=== PATIENT | female | born 1980 | race Caucasian/White ===

== ENCOUNTER 2017-09-08 09:23 | Observation (INO) | payer OTHER ==
[~2017-09-08] VITALS: Ht 170.2 cm; Wt 72.2 kg
[~2017-09-08 09:23] MED LIST: CEPH500C57 OR; CIPRO500 MG OR; CLEOCIN150 MG OR; EFFEXOR75 MG PO; EQ IBUPROFEN200 MG OR; ETHINYL ESTRADIOL OR; LEVONORGESTREL OR; NAPROSYN500 MG OR; NAPROSYN500 MG PO; PYRIDIUM200 MG OR; REGLAN10 MG OR; TRAMADOL HCL50 MG OR; TRIPLE ANTI6 EX
[2017-09-08 10:52] LABS: HEMATOCRIT 40.7 % (37.0-47.0); HEMOGLOBIN 13.6 g/dl (12.0-16.0); IMMATURE GRANULOCYTES 0.2 % (0.0-1.0); MEAN CELL VOLUME 92.1 fL CALC (80.0-100.0); MEAN CORPUSCULAR HGB 30.8 pG CALC (26.0-32.0); MEAN CORPUSCULAR HGB CONC 33.4 g/L CALC (32.0-36.0); NEUT# 2.59 thou/uL (2.00-7.15); RED BLOOD COUNT 4.42 mill/uL (4.20-5.60); RED CELL DISTRI WIDTH 12.2 % (11.5-15.5)
[2017-09-08 11:05] LABS: ALBUMIN 4.6 g/dL (3.2-5.0); ALKALINE PHOSPHATASE 71 u/l (38-126); ANION GAP 14 (6-22 (CALC)); BILIRUBIN, TOTAL 0.5 mg/dL (0.0-1.4); BUN 16 mg/dL (7-17); BUN/CREATININE RATIO 22 (12-20 (CALC)); CALCIUM 9.5 mg/dL (8.4-10.2); CARBON DIOXIDE 29 mmol/l (22-30); CHLORIDE 102 mmol/l (95-108); CREATININE 0.7 mg/dL (0.5-1.0); GFR > 60 ML/MIN (>=60 (CALC)); GFR FOR AFR.AMER. > 60 ML/MIN (>=60 (CALC)); GLUCOSE 85 mg/dL (65-105); POTASSIUM 4.5 mmol/l (3.5-5.1); SGOT/AST 22 u/l (14-36); SGPT/ALT 29 u/l (9-52); SODIUM 140 mmol/l (137-146); TOTAL PROTEIN 7.3 g/dL (6.3-8.2)
[2017-09-08 11:08] LABS: MAGNESIUM 2.2 mg/dL (1.6-2.3)
[2017-09-08 11:17] LABS: MYOGLOBIN 39 ng/mL (0 - 62)
[2017-09-08 12:45] VITALS: BP 119/86
[2017-09-08 15:40] VITALS: BP 94/61
[2017-09-08 18:58] VITALS: BP 113/75
[2017-09-08 23:58] VITALS: BP 111/74
[2017-09-09 04:45] VITALS: BP 108/77
[2017-09-09 07:12] LABS: CHOLESTEROL HDL RATIO 1.9 (<4.4 (CALC))
[2017-09-09 07:38] VITALS: BP 112/77
[2017-09-09] MEDS ORDERED: EFFEXOR XR150 MG PO (10:06)
[2017-09-09 11:57] VITALS: BP 132/77
[2017-09-09 12:57] LABS: URINE BILIRUBIN - DIPSTICK NEGATIVE (NEGATIVE); URINE BLOOD DIPSTICK NEGATIVE (NEGATIVE); URINE COLOR YELLOW; URINE GLUCOSE - DIPSTICK NEGATIVE (NEGATIVE); URINE KETONE NEGATIVE (NEGATIVE); URINE LEUK ESTERASE NEGATIVE (NEGATIVE); URINE NITRITE - DIPSTICK NEGATIVE (Negative); URINE PH 6.5 (4.5-8.0); URINE PROTEIN - DIPSTICK NEGATIVE (NEG-TRACE); URINE SPECIFIC GRAVITY <=1.005; URINE UROBILINOGEN - DIPSTICK 0.2 E.U./dL (0.2)
[2017-09-09 12:59] LABS: URINE CLARITY CLEAR
[2017-09-09] MEDS ORDERED: PEPCID20 MG PO (14:15)
[2017-09-09] MEDS ORDERED: LORTAB 5/3255 MG PO (14:15)
== END 2017-09-09 17:23 | disposition home or self-care (01) | DRG 312 ==
LOC: ED 09:23 → ED-I 11:35 → ED 11:48 → MS2 11:49
PROVIDERS: Emergency Medicine; Nurse Practitioner Family; ADMIT Internal Medicine; ATTEND Internal Medicine
DX: R55 Syncope and collapse (principal); F32.9 Major depressive disorder, single episode, unspecified; S00.03XA Contusion of scalp, initial encounter; F41.9 Anxiety disorder, unspecified; R20.2 Paresthesia of skin; R94.31 Abnormal electrocardiogram [ECG] [EKG]; W18.39XA Other fall on same level, initial encounter; Y92.009 Unspecified place in unspecified non-institutional (private) residence as the place of occurrence of the external cause

== ENCOUNTER 2019-05-07 13:36 | Emergency (ER) | payer OTHER ==
[~2019-05-07] VITALS: Ht 170.2 cm; Wt 90.0 kg
[~2019-05-07 13:36] MED LIST changes: +EFFEXOR XR150 MG PO; +LORTAB 5/3255 MG PO; +PEPCID20 MG PO
[2019-05-07 14:04] LABS: HEMATOCRIT 38.2 % (37.0-47.0); IMMATURE GRANULOCYTES 0.3 % (0.0-5.0); MEAN CORPUSCULAR HGB 31.3 pG CALC (26.0-32.0); NEUT# 3.48 thou/uL (2.00-7.15); RED BLOOD COUNT 4.15 mill/uL (4.20-5.60); RED CELL DISTRI WIDTH 12.5 % (11.5-15.5)
[2019-05-07 14:05] LABS: URINE BILIRUBIN - DIPSTICK NEGATIVE (NEGATIVE); URINE BLOOD DIPSTICK NEGATIVE (NEGATIVE); URINE COLOR YELLOW; URINE GLUCOSE - DIPSTICK NEGATIVE (NEGATIVE); URINE KETONE NEGATIVE (NEGATIVE); URINE LEUK ESTERASE NEGATIVE (NEGATIVE); URINE NITRITE - DIPSTICK NEGATIVE (Negative); URINE PROTEIN - DIPSTICK NEGATIVE (NEG-TRACE); URINE SPECIFIC GRAVITY <=1.005; URINE UROBILINOGEN - DIPSTICK 0.2 E.U./dL (0.2)
[2019-05-07] MEDS ORDERED: PAROXETINE10 MG PO (14:08)
[2019-05-07] MEDS ORDERED: CLONAZEPAM1 MG PO (14:09)
[2019-05-07 14:24] LABS: ALBUMIN 4.8 g/dL (3.2-5.0); ALKALINE PHOSPHATASE 77 u/l (38-126); AMYLASE 101 u/l (30-110); ANION GAP 14 (6-22 (CALC)); BILIRUBIN, TOTAL 0.5 mg/dL (0.0-1.4); BUN 14 mg/dL (7-17); BUN/CREATININE RATIO 21 (12-20 (CALC)); CARBON DIOXIDE 28 mmol/l (22-30); CHLORIDE 101 mmol/l (95-108); CREATININE 0.7 mg/dL (0.5-1.0); GFR > 60 ML/MIN (>=60 (CALC)); GFR FOR AFR.AMER. > 60 ML/MIN (>=60 (CALC)); LIPASE 74 u/l (23-300); POTASSIUM 3.8 mmol/l (3.5-5.1); SGOT/AST 25 u/l (14-36); SODIUM 138 mmol/l (137-146); TOTAL PROTEIN 7.6 g/dL (6.3-8.2)
[2019-05-07] MEDS ORDERED: ONDANSETRON4 MG PO (15:26)
[2019-05-07 16:15] VITALS: BP 114/61
== END 2019-05-07 16:15 | disposition home or self-care (01) | DRG 392 ==
LOC: ED 13:36
PROVIDERS: Family Medicine
DX: K52.9 Noninfective gastroenteritis and colitis, unspecified (principal)
CPT/HCPCS: Q9967

== ENCOUNTER 2023-02-25 17:58 | Emergency (ER) | payer OTHER ==
[~2023-02-25] VITALS: Ht 170.2 cm; Wt 77.1 kg
[~2023-02-25 17:58] MED LIST changes: +CLONAZEPAM1 MG PO; +ONDANSETRON4 MG PO; +PAROXETINE10 MG PO
[2023-02-25 18:34] LABS: BASO% 0.3 % (0-3); EOS% 0.7 % (0-8); HEMATOCRIT 35.5 % (37.0-47.0); HEMOGLOBIN 11.8 g/dl (12.0-16.0); IMMATURE GRANULOCYTES 0.2 % (0.0-5.0); LYMPH% 31.9 % (15-41); MEAN CELL VOLUME 92.7 fL CALC (80.0-100.0); MEAN CORPUSCULAR HGB 30.8 pG CALC (26.0-32.0); MEAN CORPUSCULAR HGB CONC 33.2 g/dL CAL (32.0-36.0); MONO% 10.6 % (2-13); NEUT# 3.39 thou/uL (2.00-7.15); NEUT% 56.3 % (42-76); RED BLOOD COUNT 3.83 mill/uL (4.20-5.60); RED CELL DISTRI WIDTH 12.5 % (11.5-15.5)
[2023-02-25 18:44] LABS: ALBUMIN 4.6 g/dL (3.2-5.0); ALKALINE PHOSPHATASE 49 u/l (38-126); ANION GAP 10 (6-22 (CALC)); BILIRUBIN, TOTAL 0.6 mg/dL (0.02-1.3); BUN 10 mg/dL (7-17); BUN/CREATININE RATIO 15 (12-20 (CALC)); CARBON DIOXIDE 28 mmol/l (22-30); CHLORIDE 101 mmol/l (95-108); CREATININE 0.7 mg/dL (0.5-1.0); ETHYL ALCOHOL 0 mg/dl (0-30); GFR FOR AFR.AMER. > 60 ML/MIN (>=60 (CALC)); GFR OTHER RACES > 60 ML/MIN (>=60 (CALC)); POTASSIUM 3.3 mmol/l (3.5-5.1); SGOT/AST 28 u/l (14-36); SODIUM 136 mmol/l (137-146); TOTAL PROTEIN 7.3 g/dL (6.3-8.2)
[2023-02-25 19:18] LABS: URINE BILIRUBIN - DIPSTICK NEGATIVE (NEGATIVE); URINE BLOOD DIPSTICK NEGATIVE (NEGATIVE); URINE COLOR YELLOW; URINE GLUCOSE - DIPSTICK NEGATIVE (NEGATIVE); URINE KETONE NEGATIVE (NEGATIVE); URINE LEUK ESTERASE NEGATIVE (NEGATIVE); URINE PROTEIN - DIPSTICK TRACE mg/dL (NEG-TRACE); URINE SPECIFIC GRAVITY >=1.030; URINE UROBILINOGEN - DIPSTICK 0.2 E.U./dL (0.2)
[2023-02-25 19:20] LABS: URINE NITRITE - DIPSTICK NEGATIVE (Negative)
[2023-02-25 19:35] VITALS: BP 135/82
== END 2023-02-25 19:55 | disposition home or self-care (01) | DRG 312 ==
LOC: ED 17:58
PROVIDERS: Family Medicine
DX: R55 Syncope and collapse (principal); F41.9 Anxiety disorder, unspecified

== ENCOUNTER 2023-03-10 19:30 | Emergency (ER) | payer OTHER ==
[2023-03-10] VITALS (13 sets, daily range): BP systolic 102–134; BP diastolic 55–80
[~2023-03-10] VITALS: Ht 170.2 cm; Wt 74.0 kg
[2023-03-10] MEDS ORDERED: PROZAC10 MG PO (19:46)
[2023-03-10] MEDS ORDERED: TRAZODONE HCL50 MG PO (19:47)
[2023-03-10] MEDS ORDERED: BUSPAR5 MG PO (19:47)
[2023-03-10] MEDS ORDERED: ALLERGY RE50 MCG/ACT (19:48)
[2023-03-10] MEDS ORDERED: MONTELUKAST SOD10 MG PO (19:48)
[2023-03-10 20:43] LABS: URINE BILIRUBIN - DIPSTICK NEGATIVE (NEGATIVE); URINE BLOOD DIPSTICK NEGATIVE (NEGATIVE); URINE COLOR YELLOW; URINE GLUCOSE - DIPSTICK NEGATIVE (NEGATIVE); URINE KETONE NEGATIVE (NEGATIVE); URINE LEUK ESTERASE NEGATIVE (NEGATIVE); URINE PROTEIN - DIPSTICK NEGATIVE (NEG-TRACE); URINE SPECIFIC GRAVITY <=1.005; URINE UROBILINOGEN - DIPSTICK 0.2 E.U./dL (0.2)
[2023-03-10 20:46] LABS: URINE NITRITE - DIPSTICK NEGATIVE (Negative)
[2023-03-10 20:54] LABS: BASO% 0.2 % (0-3); EOS% 0.6 % (0-8); HEMATOCRIT 40.3 % (37.0-47.0); HEMOGLOBIN 13.1 g/dl (12.0-16.0); IMMATURE GRANULOCYTES 0.2 % (0.0-5.0); LYMPH% 22.2 % (15-41); MEAN CELL VOLUME 95.3 fL CALC (80.0-100.0); MEAN CORPUSCULAR HGB CONC 32.5 g/dL CAL (32.0-36.0); MONO% 11.6 % (2-13); NEUT# 3.49 thou/uL (2.00-7.15); NEUT% 65.2 % (42-76); RED BLOOD COUNT 4.23 mill/uL (4.20-5.60); RED CELL DISTRI WIDTH 12.8 % (11.5-15.5)
[2023-03-10 21:10] LABS: ALBUMIN 4.5 g/dL (3.2-5.0); ALKALINE PHOSPHATASE 52 u/l (38-126); ANION GAP 11 (6-22 (CALC)); BUN 8 mg/dL (7-17); BUN/CREATININE RATIO 10 (12-20 (CALC)); CARBON DIOXIDE 26 mmol/l (22-30); CHLORIDE 104 mmol/l (95-108); CREATININE 0.7 mg/dL (0.5-1.0); GFR FOR AFR.AMER. > 60 ML/MIN (>=60 (CALC)); GFR OTHER RACES > 60 ML/MIN (>=60 (CALC)); POTASSIUM 3.6 mmol/l (3.5-5.1); SGOT/AST 20 u/l (14-36); SODIUM 137 mmol/l (137-146)
[2023-03-10 21:11] LABS: BILIRUBIN, TOTAL 0.3 mg/dL (0.02-1.3)
[2023-03-10] MEDS ORDERED: MECLIZINE25 M1 PO (23:14)
[2023-03-10] MEDS ORDERED: ONDANSETRON4 MG PO (23:14)
== END 2023-03-10 23:49 | disposition home or self-care (01) | DRG 881 ==
LOC: ED 19:30
PROVIDERS: Emergency Medicine
DX: F32.A Depression, unspecified (principal); R51.9 Headache, unspecified

== ENCOUNTER 2023-03-21 08:17 | Emergency (ER) | payer OTHER ==
[2023-03-21] VITALS (9 sets, daily range): BP systolic 82–125; BP diastolic 58–78
[~2023-03-21] VITALS: Ht 167.6 cm; Wt 72.0 kg
[~2023-03-21 08:17] MED LIST changes: +ALLERGY RE50 MCG/ACT; +BUSPAR5 MG PO; +MECLIZINE25 M1 PO; +MONTELUKAST SOD10 MG PO; +PROZAC10 MG PO; +TRAZODONE HCL50 MG PO
[2023-03-21] MEDS ORDERED: PAROXETINE10 MG PO (08:46)
== END 2023-03-21 11:23 | disposition home or self-care (01) | DRG 605 ==
LOC: ED 08:17
DX: S60.212A Contusion of left wrist, initial encounter (principal); S40.022A Contusion of left upper arm, initial encounter; S40.021A Contusion of right upper arm, initial encounter; F32.A Depression, unspecified; Y35.893A Legal intervention involving other specified means, suspect injured, initial encounter

== ENCOUNTER 2023-06-25 10:39 | Emergency (ER) | payer OTHER ==
[2023-06-25] VITALS (20 sets, daily range): BP systolic 102–120; BP diastolic 66–90
[~2023-06-25] VITALS: Ht 167.6 cm; Wt 68.0 kg
[2023-06-25 11:53] LABS: BASO% 0.4 % (0-3); EOS% 1.3 % (0-8); HEMATOCRIT 37.4 % (37.0-47.0); HEMOGLOBIN 12.3 g/dl (12.0-16.0); IMMATURE GRANULOCYTES 0.2 % (0.0-5.0); LYMPH% 26.1 % (15-41); MEAN CORPUSCULAR HGB 30.9 pG CALC (26.0-32.0); MEAN CORPUSCULAR HGB CONC 32.9 g/dL CAL (32.0-36.0); NEUT# 2.76 thou/uL (2.00-7.15); RED BLOOD COUNT 3.98 mill/uL (4.20-5.60)
[2023-06-25 12:03] LABS: ALBUMIN 4.1 g/dL (3.2-5.0); ALKALINE PHOSPHATASE 46 u/l (38-126); BUN 7 mg/dL (7-17); BUN/CREATININE RATIO 11 (12-20 (CALC)); CHLORIDE 100 mmol/l (95-108); CREATININE 0.7 mg/dL (0.5-1.0); GFR FOR AFR.AMER. > 60 ML/MIN (>=60 (CALC)); GFR OTHER RACES > 60 ML/MIN (>=60 (CALC)); LIPASE 50 u/l (23-300); POTASSIUM 4.2 mmol/l (3.5-5.1); SGOT/AST 26 u/l (14-36); SODIUM 137 mmol/l (137-146); TOTAL PROTEIN 6.9 g/dL (6.3-8.2)
[2023-06-25 12:05] LABS: ANION GAP 8 (6-22 (CALC)); BILIRUBIN, TOTAL 0.5 mg/dL (0.02-1.3); CARBON DIOXIDE 33 mmol/l (22-30)
[2023-06-25 14:35] LABS: URINE BILIRUBIN - DIPSTICK Negative (NEGATIVE); URINE BLOOD DIPSTICK Negative (NEGATIVE); URINE GLUCOSE - DIPSTICK Negative (NEGATIVE); URINE KETONE Negative (NEGATIVE); URINE LEUK ESTERASE Negative (NEGATIVE); URINE NITRITE - DIPSTICK Negative (Negative); URINE PH 7.5 (4.5-8.0); URINE PROTEIN - DIPSTICK Negative (NEG-TRACE); URINE SPECIFIC GRAVITY 1.015; URINE UROBILINOGEN - DIPSTICK 0.2 E.U./dL (0.2)
[2023-06-25 14:36] LABS: URINE COLOR Yellow
[2023-06-25] MEDS ORDERED: DICYCLOMINE HYD10 MG PO (15:03)
[2023-06-25] MEDS ORDERED: ONDANSETRON4 MG PO (15:03)
== END 2023-06-25 15:15 | disposition home or self-care (01) | DRG 312 ==
LOC: ED 10:39
PROVIDERS: Nurse Practitioner
DX: R55 Syncope and collapse (principal); R10.9 Unspecified abdominal pain; R51.9 Headache, unspecified; F32.A Depression, unspecified

== ENCOUNTER 2023-10-03 18:59 | Emergency (ER) | payer OTHER ==
[~2023-10-03] VITALS: Ht 167.6 cm; Wt 68.0 kg
[~2023-10-03 18:59] MED LIST changes: +CLARITIN10 M1 PO; +DICYCLOMINE HYD10 MG PO; +KLONOPIN2 MG PO; +LINZESS290 MCG PO
[2023-10-03] MEDS ORDERED: VOLTAREN - GENE75 MG PO (22:06)
[2023-10-03 22:12] VITALS: BP 129/82
== END 2023-10-03 22:18 | disposition home or self-care (01) | DRG 605 ==
LOC: ED 18:59
DX: S20.222A Contusion of left back wall of thorax, initial encounter (principal); W18.2XXA Fall in (into) shower or empty bathtub, initial encounter; Y93.E1 Activity, personal bathing and showering; Y92.002 Bathroom of unspecified non-institutional (private) residence as the place of occurrence of the external cause; Z72.0 Tobacco use

== ENCOUNTER 2023-10-21 08:57 | Day surgery (SDC) | payer OTHER ==
[~2023-10-21] VITALS: Ht 167.6 cm; Wt 66.7 kg
[~2023-10-21 08:57] MED LIST changes: +DICYCLOMINE HCL20 MG PO; +IMITREX25 MG PO; +TRAZODONE50 MG PO; +VOLTAREN - GENE75 MG PO
[2023-10-21 10:42] VITALS: BP 118/76
== END 2023-10-21 10:56 | disposition home or self-care (01) | DRG 392 ==
LOC: ORM 08:57
PROVIDERS: ATTEND Internal Medicine Gastroenterology
PROC: 0DB98ZX Excision of Duodenum, Via Natural or Artificial Opening Endoscopic, Diagnostic (ICD-10-PCS; principal; 2023-10-21)
PROC: 0DB78ZX Excision of Stomach, Pylorus, Via Natural or Artificial Opening Endoscopic, Diagnostic (ICD-10-PCS; 2023-10-21)
PROC: 0DB58ZX Excision of Esophagus, Via Natural or Artificial Opening Endoscopic, Diagnostic (ICD-10-PCS; 2023-10-21)
DX: K58.1 Irritable bowel syndrome with constipation (principal); K29.70 Gastritis, unspecified, without bleeding; K31.9 Disease of stomach and duodenum, unspecified; K20.90 Esophagitis, unspecified without bleeding; K25.9 Gastric ulcer, unspecified as acute or chronic, without hemorrhage or perforation

== ENCOUNTER 2024-09-04 18:54 | Emergency (ER) | payer OTHER ==
[~2024-09-04] VITALS: Ht 167.6 cm; Wt 78.0 kg
[2024-09-04 19:12] VITALS: BP 157/111
[2024-09-04 19:15] VITALS: BP 166/99
[2024-09-04] MEDS ORDERED: DENAVIR1 % EX (19:35)
[2024-09-04] MEDS ORDERED: VALTREX1 GM PO (19:35)
[2024-09-04 19:45] VITALS: BP 166/99
== END 2024-09-04 19:47 | disposition home or self-care (01) | DRG 759 ==
LOC: ED 18:54
DX: A60.04 Herpesviral vulvovaginitis (principal)